=== PATIENT | male | born 1970 | race Caucasian/White ===

== ENCOUNTER 2019-11-05 10:04 | Outpatient (CLI) | payer OTHER ==
--- NOTE | 2019-11-05 14:16 | XRAY Report ---
Reason: RIGHT SIDED RIB PAIN Procedure Date: 11/05/2019 Accession Number: [id number] / [id number] Procedure: WCP - Chest 2 View X-Ray CPT Code: 38311 Final Report FULL RESULT: EXAM: CHEST RADIOGRAPHY EXAM DATE: 11/05/2019 10:04 AM. CLINICAL HISTORY: RIGHT SIDED RIB PAIN. COMPARISON: RIBS W/PA CHEST RT 04/11/2016 10:10 AM. TECHNIQUE: 2 views. FINDINGS: Lungs/Pleura: No focal opacities evident. No pleural effusion. No pneumothorax. Normal volumes. Mediastinum: Heart and mediastinal contours are unremarkable. Other: Intact ribs. Chronic compression deformity of T12 again noted. IMPRESSION: 1. No acute process. 2. Normal right ribs. RADIA
== END 2019-11-05 23:59 | disposition home or self-care (01) ==
LOC: DI.WCP 10:04
PROVIDERS: ATTEND Family Medicine
DX: R07.81 Pleurodynia (principal)
CPT/HCPCS: 71046

== ENCOUNTER 2019-12-02 06:58 | Day surgery (SDC) | payer OTHER ==
[2019-12-02] MEDS ORDERED: LACTATED RINGERS 1,000 ML IV ONE (07:20)
[2019-12-02] MEDS ORDERED: LIDO GARGLE 30 ML BOTTLE ONE (10:56)
[2019-12-02] MEDS ORDERED: fentaNYL 250 MCG/5 ML VIAL IVP ONE (11:07)
[2019-12-02] MEDS ORDERED: MIDAZOLAM 2 MG/2 ML VIAL IVP ONE (11:07)
[2019-12-02] MEDS ORDERED: GLUCAGON 1 MG/ML VIAL IM ONE (11:07)
[2019-12-02] MEDS ORDERED: LIDO GARGLE 30 ML BOTTLE PO ONE (11:20)
--- NOTE | 2019-12-02 13:08 | OPERATIVE REPORT ---
Operative Report - General Pre-Op Diagnosis: 1. Reflux 2. Need for screening colonscopy Procedure Performed: 1. EGD with biopsy 2. Low Risk Screening Colonoscopy with biopsies Post Op Diagnosis: Colon polyps - Procedure Note Primary Surgeon: Leandra Hawkins MD Anesthesia Provider: RN Anesthesia Technique: Moderate sedation Pathology: 1. SELAM test 2. R proximal colon polyp 3. R colon polyp 4. Sigmoid polyp and mucosa biopsy - Other Other Information/Narrative: The patient was brought to the GI suite and placed in the left lateral decubitus position on the examination table. After placement of appropriate monitors, the patient was given incremental doses of Versed and Fentanyl until an appropriate level of sedation was achieved. A time out was held per SCOAP protocol. A bite block was gently placed between the patient's teeth. The endoscope was lubricated and then passed into the patient's posterior oropharynx. The esophagus was cannulated under direct vision and the scope was passed to the second portion of the duodenum without difficulty. The scope was then withdrawn with careful examination of all areas of the upper GI tract and mucosa. In the stomach, the instrument was retroflexed and the GE junction examined. All surfaces have normal mucosa. A SELAM test biopsy is taken from the antrum. The scope was straightened and the procedure continued with examination of the remainder of the upper GI tract. Findings are noted above. Air was aspirated from the stomach and the endoscope gently removed from the esophagus. The patient was allowed to awaken from sedation without difficulty and taken to the post-anesthesia care unit in good condition. Air was aspirated from the stomach and the endoscope gently removed from the esophagus. The examination table was turned and we continued with the colonoscopy. A digital rectal examination was performed and did not reveal any masses or obstructing lesions nor but small external hemorrhoids. The colonoscope was gently passed into the patient's anus and the entire colon navigated to the level of the cecum with minimal difficulty. Prep was adequate. Once in the cecum, the scope was slowly withdrawn being sure to go before and beyond all mucosal folds and prominences as able to get a thorough examination. Two right colon polyps, measuring 1mm (proximal specimen) and 2mm are removed via cold biopsy forceps and hot snare, respectively. A 1mm sigmoid polyp is also noted and removed via cold biopsy forceps. Other findings include a 3-4mm patch of petechia and mucosal irritation without apparent inflammation is noted in the sigmoid and a cold forcep biopsy is taken. At the level of the rectal vault, the scope was retroflexed and the internal anal canal was examined. The scope was straightened and air aspirated from the colon. The instrument was removed from the patient's body and the procedure was concluded. The patient was allowed to awaken from sedation without difficulty and taken to the post-anesthesia care unit in good condition.
[2019-12-02 13:26] VITALS: BP 144/70
== END 2019-12-02 06:59 | disposition home or self-care (01) ==
LOC: SDS 06:58
PROVIDERS: ATTEND Surgery
PROC: 0DBN8ZZ Excision of Sigmoid Colon, Via Natural or Artificial Opening Endoscopic (ICD-10-PCS; 2019-12-02)
PROC: 0DB78ZX Excision of Stomach, Pylorus, Via Natural or Artificial Opening Endoscopic, Diagnostic (ICD-10-PCS; principal; 2019-12-02 08:30)
PROC: 0DBF8ZZ Excision of Right Large Intestine, Via Natural or Artificial Opening Endoscopic (ICD-10-PCS; 2019-12-02 08:30)
DX: Z12.11 Encounter for screening for malignant neoplasm of colon (principal); D12.2 Benign neoplasm of ascending colon; K64.4 Residual hemorrhoidal skin tags; I10 Essential (primary) hypertension; Z79.899 Other long term (current) drug therapy; Z87.19 Personal history of other diseases of the digestive system
CPT/HCPCS: 43239; 45380; 45385; 87081; A9270; J3010; J7120

== ENCOUNTER 2020-05-04 16:59 | Outpatient (CLI) | payer OTHER ==
--- NOTE | 2020-05-05 09:22 | XRAY Report ---
PROCEDURE: Elbow 3 View RT INDICATIONS: Elbow pain TECHNIQUE: 3 views of the right elbow were acquired. COMPARISON: None FINDINGS: Bones: No fractures or dislocations. No suspicious bony lesions. Soft tissues: No elbow joint effusion. No suspicious soft tissue calcifications. IMPRESSION: No acute finding. Reviewed by: Lam Goff MD on 05/05/2020 9:20 AM PDT Approved by: Lam Goff MD on 05/05/2020 9:20 AM PDT Station ID: [id number]
--- NOTE | 2020-05-05 10:01 | XRAY Report ---
PROCEDURE: Knee 2 View BILAT INDICATIONS: KNEE PAIN BILAT TECHNIQUE: 3 views of the bilateral knee(s) were acquired. COMPARISON: None. FINDINGS: Bones: Moderate left lateral femoral tibial compartment joint space narrowing and subchondral scleros is is seen with marginal osteophyte formation. Mild bilateral medial femoral tibial compartment joint space narrowing is also seen. No fractures or dislocations. No suspicious bony lesions. Soft tissues: No joint effusion. No suspicious soft tissue calcifications. 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 No fracture or dislocation. Reviewed by: Bishop Dawkins MD on 05/05/2020 9:59 AM PDT Approved by: Bishop Dawkins MD on 05/05/2020 9:59 AM PDT Station ID: [id number]
== END 2020-05-04 17:00 | disposition home or self-care (01) ==
LOC: DI 16:59
PROVIDERS: ATTEND Family Medicine
DX: M25.521 Pain in right elbow (principal); M17.0 Bilateral primary osteoarthritis of knee
CPT/HCPCS: 73565

== ENCOUNTER 2021-09-29 14:40 | Outpatient (CLI) | payer BC, OTHER ==
[2021-09-29 18:13] LABS: BASOPHILS # (AUTO) 0.1 10^3/uL (0.0-0.1); BASOPHILS % (AUTO) 0.9 %; EOSINOPHILS # (AUTO) 0.2 10^3/uL (0.0-0.7); EOSINOPHILS % (AUTO) 1.6 %; HGB - HEMOGLOBIN 15.5 g/dL (14.0-18.0); LYMPHOCYTES # (AUTO) 1.8 10^3/uL (1.5-3.5); LYMPHOCYTES % (AUTO) 17.9 %; MEAN CORPUSCULAR HEMOGLOBIN 28.8 pg (27.0-31.0); MEAN CORPUSCULAR VOLUME 87.2 fL (80.0-94.0); MONOCYTES # (AUTO) 0.9 10^3/uL (0.0-1.0); MONOCYTES % (AUTO) 8.6 %; NEUTROPHILS # (AUTO) 7.1 10^3/uL (1.5-6.6); NEUTROPHILS % (AUTO) 70.6 %; PLT - PLATELET COUNT 327 10^3/uL (130-450); RED BLOOD COUNT 5.39 10^6/uL (4.70-6.10); RED CELL DISTRIBUTION WIDTH 12.5 % (12.0-15.0)
[2021-09-29 18:32] LABS: ALBUMIN/GLOBULIN RATIO 1.4 (1.0-2.2); ALKALINE PHOSPHATASE 44 IU/L (42-121); ALT ALANINE AMINOTRANSFERASE 30 IU/L (10-60); AST ASPARTATE AMINOTRANSFERASE 17 IU/L (10-42); BILIRUBIN,TOTAL 0.5 mg/dL (0.2-1.0); BUN - BLOOD UREA NITROGEN 14 mg/dL (6-20); CARBON DIOXIDE - CO2 28 mmol/L (21-32); CHLORIDE 101 mmol/L (101-111); CHOL/HDL RATIO 4.2 (<5.0); CHOLESTEROL 243 mg/dL; CREATININE 0.9 mg/dL (0.6-1.2); GFR - MDRD 89 (>89); GLUCOSE 96 mg/dL (70-100); HDL CHOLESTEROL 58 mg/dL; LDL CHOLESTEROL,CALCULATED 145 mg/dL; LDL/HDL RATIO 2.5 (<3.6); POTASSIUM 3.7 mmol/L (3.5-5.0); SODIUM 137 mmol/L (135-145); TOTAL PROTEIN 6.8 g/dL (6.7-8.2); TRIGLYCERIDES 198 mg/dL; URIC ACID 5.6 mg/dL (2.6-7.2); VLDL CHOLESTEROL 40 mg/dL
== END 2021-09-29 23:59 | disposition home or self-care (01) ==
LOC: LAB.WCP 14:40
PROVIDERS: ATTEND Family Medicine
DX: I10 Essential (primary) hypertension (principal); M10.9 Gout, unspecified; E78.5 Hyperlipidemia, unspecified
CPT/HCPCS: 36415; 80053; 80061; 83721; 84550; 85025

== ENCOUNTER 2022-04-12 08:00 | Outpatient (CLI) | payer OTHER ==
[2022-04-12 21:47] LABS: FECAL OCCULT BLOOD (FIT) NEGATIVE (NEGATIVE)
== END 2022-04-12 23:59 | disposition home or self-care (01) ==
LOC: LAB.R 08:00
PROVIDERS: ATTEND Physician Assistant
DX: R19.5 Other fecal abnormalities (principal)
CPT/HCPCS: 82274

== ENCOUNTER 2022-04-29 10:38 | Outpatient (CLI) | payer OTHER ==
--- NOTE | 2022-04-29 15:46 | XRAY Report ---
PROCEDURE: Elbow 3 View RT INDICATIONS: RIGHT ELBOW PAIN TECHNIQUE: 3 views of the elbow were acquired. COMPARISON: None FINDINGS: Bones: No fractures or dislocations. No suspicious bony lesions. There are calcifications anterior to the anterior joint capsule. No acute abnormality. Soft tissues: No elbow joint effusion. No suspicious soft tissue calcifications. IMPRESSION: No fracture or acute abnormality. Calcifications in the anterior joint capsule. Given per sistent symptoms over the last year, consider MRI. Reviewed by: Allen Rivera on 04/29/2022 2:44 PM LANCE Approved by: Allen Rivera on 04/29/2022 2:44 PM LANCE Station ID: [id number]
--- NOTE | 2022-04-29 15:48 | XRAY Report ---
PROCEDURE: Knee 3 View BILAT INDICATIONS: KNEE PAIN, RIGHT TECHNIQUE: 3 views of the right and left knee(s) were acquired. COMPARISON: None. FINDINGS: Bones: No fractures or dislocations. The right knee is normal. The left knee demonstrates lateral samara int space narrowing and lateral osteophytes with subchondral sclerosis consistent with degenerative c hanges. Soft tissues: No joint effusion. No suspicious soft tissue calcifications. IMPRESSION: 1. Degenerative changes of the left knee with lateral joint space narrowing. 2. Normal right knee. Reviewed by: Allen Rivera on 04/29/2022 2:47 PM LANCE Approved by: Allen Rivera on 04/29/2022 2:47 PM LANCE Station ID: [id number]
== END 2022-04-29 10:39 | disposition home or self-care (01) ==
LOC: DI 10:38
PROVIDERS: ATTEND Physician Assistant
DX: M25.561 Pain in right knee (principal); M25.821 Other specified joint disorders, right elbow; M17.12 Unilateral primary osteoarthritis, left knee

== ENCOUNTER 2022-12-17 07:09 | Outpatient (CLI) | payer OTHER ==
[2022-12-17 12:29] LABS: BASOPHILS # (AUTO) 0.1 10^3/uL (0.0-0.1); EOSINOPHILS # (AUTO) 0.2 10^3/uL (0.0-0.7); EOSINOPHILS % (AUTO) 2.4 %; LYMPHOCYTES # (AUTO) 1.8 10^3/uL (1.5-3.5); LYMPHOCYTES % (AUTO) 19.7 %; MEAN CORPUSCULAR HEMOGLOBIN 28.6 pg (27.0-31.0); MEAN CORPUSCULAR HGB CONC 32.6 g/dL (32.0-36.0); MEAN CORPUSCULAR VOLUME 87.8 fL (80.0-94.0); MEAN PLATELET VOLUME 10.6 fL (7.4-11.4); MONOCYTES # (AUTO) 0.6 10^3/uL (0.0-1.0); MONOCYTES % (AUTO) 6.6 %; NEUTROPHILS # (AUTO) 6.5 10^3/uL (1.5-6.6); PLT - PLATELET COUNT 337 10^3/uL (130-450); RED BLOOD COUNT 5.24 10^6/uL (4.70-6.10); RED CELL DISTRIBUTION WIDTH 13.4 % (12.0-15.0); WHITE BLOOD COUNT 9.3 x10^3/uL (4.8-10.8)
[2022-12-17 13:27] LABS: THYROID STIMULATING HORMONE 2.52 uIU/mL (0.34-5.60)
[2022-12-17 13:34] LABS: ALBUMIN/GLOBULIN RATIO 1.4 (1.0-2.2); ALKALINE PHOSPHATASE 45 IU/L (42-121); ALT ALANINE AMINOTRANSFERASE 26 IU/L (10-60); AST ASPARTATE AMINOTRANSFERASE 15 IU/L (10-42); BILIRUBIN,TOTAL 0.6 mg/dL (0.2-1.0); BUN - BLOOD UREA NITROGEN 24 mg/dL (6-20); CALCIUM 10.1 mg/dL (8.5-10.3); CARBON DIOXIDE - CO2 28 mmol/L (21-32); CHLORIDE 102 mmol/L (101-111); CHOL/HDL RATIO 2.9 (<5.0); CHOLESTEROL 203 mg/dL; GFR - MDRD 78 (>89); GLUCOSE 107 mg/dL (70-100); HDL CHOLESTEROL 70 mg/dL; LDL CHOLESTEROL,CALCULATED 118 mg/dL; LDL/HDL RATIO 1.7 (<3.6); POTASSIUM 4.5 mmol/L (3.5-5.0); SODIUM 138 mmol/L (135-145); TOTAL PROTEIN 6.9 g/dL (6.7-8.2); TRIGLYCERIDES 75 mg/dL; URIC ACID 5.5 mg/dL (2.6-7.2); VLDL CHOLESTEROL 15 mg/dL
[2022-12-17 13:35] LABS: CRP - C-REACTIVE PROTEIN < 1.0 mg/dL (0-1.0)
[2022-12-17 20:35] LABS: ESTIMATED AVERAGE GLUCOSE 126 mg/dL (70-100)
== END 2022-12-17 07:10 | disposition home or self-care (01) ==
LOC: LAB.N 07:09
PROVIDERS: ATTEND Physician Assistant
DX: I10 Essential (primary) hypertension (principal); E78.5 Hyperlipidemia, unspecified; M10.9 Gout, unspecified; R42 Dizziness and giddiness; R73.01 Impaired fasting glucose
CPT/HCPCS: 36415; 80053; 80061; 83036; 83721; 84443; 84550; 85025; 85651; 86140